=== PATIENT | male | born 1955 | race Caucasian/White ===

== ENCOUNTER 2019-04-16 05:59 | Inpatient (IN) | payer OTHER, BC ==
[2019-04-10 16:54] VITALS: BMI 38.5
[~2019-04-16 05:59] MED LIST: VANCOMYCIN 1,000 MG VIAL (RESTRICTED TO ID ONLY) IVPB ONE
[2019-04-16] MEDS ORDERED: oxyCODONE HCL 10 MG SUSTAINED ACTING TABLET PO ONE (06:27)
[2019-04-16] MEDS ORDERED: TRANEXAMIC ACID 1000 MG/10 ML VIAL IVPUSH ONE (06:27)
[2019-04-16] MEDS ORDERED: CELECOXIB 200 MG CAPSULE PO ONE (06:27)
[2019-04-16] MEDS ORDERED: BUPIVACAINE HCL/PF 0.5% (5MG/ML) 10 ML VIAL ONE (07:13)
[2019-04-16] MEDS ORDERED: MIDAZOLAM HCL 2 MG/2 ML SINGLE DOSE VIAL ONE (07:24)
[2019-04-16] MEDS ORDERED: BUPIVACAINE LIPOSOME/PF (EXPAREL) 266 MG/20 ML VIAL ONE (07:25)
[2019-04-16] MEDS ORDERED: SODIUM CHLORIDE 0.9% P/F 10 ML VIAL IJ ONE (07:25)
[2019-04-16] MEDS ORDERED: VANCOMYCIN 1,000 MG VIAL (RESTRICTED TO ID ONLY) ONE (07:39)
[2019-04-16] MEDS ORDERED: ceFAZolin SODIUM 1 GM VIAL ONE ×2 (07:39→08:26)
[2019-04-16] MEDS ORDERED: MAGNESIUM HYDROX 2400MG/30ML ORAL SUSPENSION 30 ML CUP PO PRN (07:57)
[2019-04-16] MEDS ORDERED: ONDANSETRON 4 MG/2 ML VIAL IVPUSH PRN (07:57)
[2019-04-16] MEDS ORDERED: MAG HYDROX/AL HYDROX/SIMETH 30 ML UNIT-DOSE CUP PO PRN (07:57)
--- NOTE | 2019-04-16 07:57 | HP ---
[facility]ellite [facility] - Chief Complaint Chief Complaint: right knee pain - Past Medical History Allergies/Adverse Reactions: Allergies Allergy/AdvReac Type Severity Reaction Status Date / Time Tetracyclines Allergy Unverified 04/02/13 17:58 - Current Medications Current Medications: Home Medications Medication Instructions Recorded Amlodipine Besylate [Norvasc -] 5 mg PO HS 04/10/19 Atorvastatin Ca [Lipitor] 40 mg PO HS 04/10/19 Tamsulosin HCl [Flomax] 0.4 mg PO DAILY 04/10/19 Glucosa Hare 2Kcl/Chondroitin Hare 2 each PO DAILY 04/16/19 [Glucosamine & Chondroitin Cap] Multivitamins [Tab-A-Vit -] 1 tab PO DAILY 04/16/19 Satellite Physical Exam - Physical Examination Vital Signs: Vital Signs Period Temp Pulse Resp BP Sys/Calderon Pulse Ox Last 24 Hr 98.2 F 88 18 125/80 General Appearance: Well Nourished, Well Developed, Alert & Oriented x3 ENT: Clear Lung: Normal air movement Heart: Regular rate & rhythm Extremities: Other (right knee- +Swelling, + ttp, decr rom, nvi, xrays show grade 4 tricompartmental djd) Neurological: Intact, Alert, Oriented Satellite Impression/Plan - Impression/Plan Impression: right knee djd Operative Procedure: right aureliano tkr Date to be Performed: 04/16/19
[2019-04-16] MEDS ORDERED: LACTATED RINGERS SOLUTION 1,000 ML IV SCH (08:00)
[2019-04-16] MEDS ORDERED: CEFAZOLIN 3 GM in DEXTROSE 5%-WATER - 50 ML IVPB ONE (08:00)
[2019-04-16] MEDS ORDERED: DEXMEDETOMIDINE HCL 200 MCG/2 ML IVPB ONE (08:07)
[2019-04-16] MEDS ORDERED: TRANEXAMIC ACID 1000 MG/10 ML VIAL ONE (08:26)
[2019-04-16] MEDS ORDERED: ONDANSETRON 4 MG/2 ML VIAL ONE (09:34)
[2019-04-16] MEDS ORDERED: DEXAMETHASONE SOD PHOSPHATE 4 MG/1 ML VIAL ONE (09:34)
[2019-04-16] MEDS ORDERED: MULTIVITAMINS (DAILY MVI) TABLET (FP) PO SCH (10:00)
[2019-04-16] MEDS ORDERED: VANCOMYCIN 1,000 MG VIAL (RESTRICTED TO ID ONLY) IVPB ONE (10:01)
[2019-04-16] MEDS ORDERED: EPHEDRINE SULFATE/0.9% NACL/PF 50 MG/10 ML SYRINGE NR ONE (10:22)
--- NOTE | 2019-04-16 10:32 | OP ---
Operative Note - Note: Operative Date: 04/16/19 (vu) Pre-Operative Diagnosis: right knee djd Operation: right aureliano tkr Post-Operative Diagnosis: Same as Pre-op Surgeon: Nicolas Ness Iron Bender: Micheal Thorne Anesthesiologist/COUGAR HUNTER: Kade Caceres Anesthesia: Spinal, Local Specimens Removed: bone fragments Estimated Blood Loss (mls): 100 Operative Report Dictated: Yes
[2019-04-16] MEDS ORDERED: oxyCODONE HCL 5 MG TABLET PO PRN (11:53)
[2019-04-16] MEDS: ACETAMINOPHEN 325 MG TABLET (FP) PO SCH ×3 (12:05→23:09)
--- NOTE | 2019-04-16 12:37 | SPEC ---
DATE OF OPERATION: 04/16/2019 PREOPERATIVE DIAGNOSIS: Degenerative joint disease, right knee. POSTOPERATIVE DIAGNOSIS: Degenerative joint disease, right knee. PROCEDURE: Right total knee replacement with robotic-assisted navigation (Makoplasty). SURGICAL ATTENDING: Nicolas Ness M.D. HR INTERNSHIP: [place] ANESTHESIA: Regional and spinal. CLOSURE: A Triathlon knee system, cemented, with a 5 femur, 5 tibia, 9 polyethylene, 35 patella, number 1 Vicryl fascia, 0 and 2-0 subcutaneous, 3-0 Monocryl subcuticular with skin glue, 4-0 undyed Vicryl for pin sites. ESTIMATED BLOOD LOSS: Approximately 100 mL. COMPLICATIONS: None. CONDITION: To recovery room in stable condition. DESCRIPTION OF OPERATIVE PROCEDURE: Patient was taken to the operating room on April 16, 2019. Regional and general anesthesia was administered by the anesthesiologist. IV Kefzol and TXA were administered by the anesthesiologist. Well-padded pneumatic tourniquet was placed on the proximal thigh. The right lower extremity was prepped and draped in the usual sterile fashion. The leg was exsanguinated with an Esmarch bandage, and tourniquet was inflated to 275 mmHg. A 12 to 15-cm longitudinal midline incision was incised while centered over the patella. The dissection was carried down to the level of the extensor mechanism with sufficient flaps made to adequately perform the procedure. A medial parapatellar arthrotomy was then performed. We made a cuff of tissue on the patella for later closure. The patella was inverted, the knee was flexed up. The fat pad was excised. The subperiosteal dissection was on the anteromedial proximal tibia around towards the direction of the MCL. The ACL and the PCL were transected and debrided. The meniscal remnants of the medial and lateral meniscus were debrided and removed. This allowed the knee to be able to "be brought forward." The checkpoints were malleted into the tibia and into the femur. Two threaded pins were drilled anteroposteriorly proximal to the knee through the previous incision, through the anterior cortex, then just engaging the posterior cortex. To these pins was assembled the femoral navigation array. One handbreadth below the tibial tubercle, 2 stab incisions were used to drill 2 threaded pins in parallel fashion into the tibia, again through the anterior cortex and just engaging the posterior cortex. To these pins was fastened the tibial arrays. The knee was then registered with the navigation device with center of rotation of the hip, medial and lateral malleoli, both checkpoints, and multiple points on both the femur and the tibia to ensure excellent registration. The navigation device was directed off the "top of the bubbles" on both the femur and the tibia. The navigation passed within less than 0.5 mm to plan. The knee was then thoroughly inspected to remove all osteophytes both medially, laterally, and on the femur and the tibia, and whatever osteophytes were available for dissection. The knee was then taken to extension and to flexion, and stressed in both varus and valgus to assess flexion gaps. The virtual position of the components on the navigation device were then manipulated to optimize the position and to ensure equal gaps in both flexion and extension, and both medially and laterally. The robot was then brought into the field and was registered. The cuts were then made both on the femur and on the tibia as to plan. All osteophytes posteriorly were then removed as well. The gaps were then measured again in flexion and extension to be equal in both flexion and extension and medial and laterally. The femoral notch was then made, as we were doing a posterior stabilizing component, with the appropriate sized box. Trial reduction of the femur achieved excellent [id number] fit. A tibial baseplate of appropriate polyethylene thickness was "floated in the knee." It was ensured to be in the excellent position by navigation devices and was pinned in place. The knee was taken through a range of motion, and found to have excellent stability throughout flexion and extension. The patella was calibrated for thickness and osteotomized down to the appropriate level. The appropriate lollipop was used to drill the lug holes in the patella and the trial button was applied. The knee was taken through a range of motion and found to have excellent tracking of the patella, and patella from full extension to full flexion. Trial components were removed, the keel was punched and drilled, and a sclerotic bone on the tibia was drilled to help with cement interdigitation. The knee was thoroughly irrigated with the pulse antibiotic management aide. The real components were then cemented in using monitored arrangement cement techniques with antibiotic cement, and pressurization and extension. After the cement was hardened, the knee was thoroughly inspected to remove any extra cement. The real polyethylene component was then clipped into place. Range of motion, stability, and tracking were as described earlier. The checkpoints and the pins were removed. The knee was thoroughly irrigated with antibiotic irrigation. Vancomycin powder was placed into the knee for antibiotic prophylaxis. The medial parapatellar arthrotomy was then closed using number 1 Vicryl interrupted suture. After closure of the deep layer, the knee was taken through a range of motion, and found to have excellent stability of the patella with no dislocation and no undue tension on the repair. The subcutaneous was pulse antibiotic irrigated, and was then closed with 2-0 Vicryl, 3-0 Monocryl subcuticular with the skin glue for the skin. The distal tibial pin site was irrigated thoroughly as well and then closed with 4-0 undyed Vicryl. A sterile Aquacel dressing was applied, followed by a Fang dressing. Tourniquet was deflated. Total tourniquet time was approximately 75 minutes. No complications. Patient was awakened from anesthesia and transferred to recovery room in stable condition. Postoperative x-rays revealed excellent position of the components. Brayan VARGAS/[id number]
[2019-04-16] MEDS ORDERED: CEFAZOLIN 3 GM in DEXTROSE 5%-WATER - 50 ML IVPB SCH (16:00)
--- NOTE | 2019-04-16 16:36 | CONSULT ---
Consultation: REQUESTING PROVIDER: Dr. Ness requested medical consult for Dr. Lewis. CONSULT REQUEST: We have been asked to medically evaluate this patient for Dr. Lewis. HISTORY OF PRESENT ILLNESS: 63 year-old male with a PMH significant for HTN, HLD, positional sleep apnea, BPH, and right knee degenerative joint disease s/p right aureliano total knee replacement pm 04/16/[address] Ness. REVIEW OF SYSTEMS: CONSTITUTIONAL: Absent: fever, chills, diaphoresis, generalized weakness, malaise, loss of appetite, weight change HEENT: Absent: rhinorrhea, nasal congestion, throat pain, throat swelling, difficulty swallowing, mouth swelling, ear pain, eye pain, visual changes CARDIOVASCULAR: Absent: chest pain, syncope, palpitations, irregular heart rate, lightheadedness , peripheral edema RESPIRATORY: Absent: cough, shortness of breath, dyspnea with exertion, orthopnea, wheezing, stridor, hemoptysis GASTROINTESTINAL: Absent: abdominal pain, abdominal distension, nausea, vomiting, diarrhea, constipation, melena, hematochezia GENITOURINARY: Absent: dysuria, frequency, urgency, hesitancy, hematuria, flank pain, genital pain MUSCULOSKELETAL: Absent: myalgia, arthralgia, joint swelling, back pain, neck pain SKIN: Absent: rash, itching, pallor HEMATOLOGIC/IMMUNOLOGIC: Absent: easy bleeding, easy bruising, lymphadenopathy, frequent infections ENDOCRINE: Absent: unexplained weight gain, unexplained weight loss, heat intolerance, cold intolerance NEUROLOGIC: Absent: headache, focal weakness or paresthesias, dizziness, unsteady gait, seizure, mental status changes, bladder or bowel incontinence PSYCHIATRIC: Absent: anxiety, depression, suicidal or homicidal ideation, hallucinations. PHYSICAL EXAMINATION Vital Signs - 24 hr 04/16/19 04/16/19 04/16/19 06:35 10:46 10:50 Temperature 98.2 F 97.6 F Pulse Rate 88 73 72 Respiratory 18 14 18 Rate Blood Pressure 125/80 105/56 L 100/61 O2 Sat by Pulse 98 99 Oximetry (%) 04/16/19 04/16/19 04/16/19 10:55 11:00 11:05 Temperature Pulse Rate 73 72 78 Respiratory 16 19 14 Rate Blood Pressure 95/63 105/61 102/62 O2 Sat by Pulse 98 97 98 Oximetry (%) 04/16/19 04/16/19 04/16/19 11:20 11:35 11:50 Temperature Pulse Rate 74 71 68 Respiratory 12 12 11 Rate Blood Pressure 105/69 103/56 L 100/59 L O2 Sat by Pulse 98 98 98 Oximetry (%) 04/16/19 04/16/19 04/16/19 12:05 12:20 12:35 Temperature 97.4 F L Pulse Rate 70 69 72 Respiratory 12 11 14 Rate Blood Pressure 104/62 105/63 105/61 O2 Sat by Pulse 97 98 98 Oximetry (%) 04/16/19 04/16/19 12:50 12:55 Temperature 97.4 F L 97.4 F L Pulse Rate 71 71 Respiratory 14 14 Rate Blood Pressure 111/64 111/64 O2 Sat by Pulse 97 97 Oximetry (%) GENERAL: Awake, alert, and fully oriented, in no acute distress. HEAD: Normal with no signs of trauma. EYES: Pupils equal, round and reactive to light, extraocular movements intact, sclera anicteric, conjunctiva clear. No lid lag. LUNGS: Breath sounds equal, clear to auscultation bilaterally. No wheezes, and no crackles. No accessory muscle use. HEART: Regular rate and rhythm, S1 and S2 ABDOMEN: Soft, nontender, not distended MUSCULOSKELETAL: RIGHT LEG in immobilizer, surgical dressings c/d/i, ice pack; flex/extend toes, intact sensory toes UPPER EXTREMITIES: 2+ pulses, warm, well-perfused. No cyanosis. No clubbing. Cap refill <2 seconds. No peripheral edema. NEUROLOGICAL: Cranial nerves II-XII intact. Normal speech. Active Medications Generic Name Dose Route Start Last Admin Trade Name Aman PRN Reason Stop Dose Admin Acetaminophen 650 mg 04/16/19 18:00 04/16/19 12:05 Tylenol - PO 04/19/19 17:59 650 mg Q6H AP Administration Al Hydroxide/Mg Hydroxide 30 ml 04/16/19 07:57 Mylanta Oral Suspension - PO Q4H PRN DYSPEPSIA Amlodipine Besylate 5 mg 04/16/19 22:00 Norvasc - PO HS AP Aspirin 325 mg 04/17/19 08:00 Asa - PO DAILY@0800 [facility] Atorvastatin Calcium 40 mg 04/16/19 22:00 Lipitor - PO HS [facility] Cefazolin Sodium 3 gm 04/16/19 16:00 Ancef - IVPB 04/17/19 00:01 Q8H [facility] Fentanyl 50 mcg 04/16/19 11:53 Sublimaze Injection - IVPUSH [id number] PRN PAIN-PACU ORDER X 4 DOSES ONLY Lactated Ringer's 1,000 mls @ 125 mls/hr 04/16/19 08:00 Lactated Ringers Solution IV 04/17/19 06:00 ASDIR [facility] Magnesium Hydroxide 30 ml 04/16/19 07:57 Milk Of Magnesia - PO PRN PRN CONSTIPATION Multivitamins/Minerals/Vitamin C 1 tab 04/16/19 10:00 Tab-A-Vit - PO DAILY [facility] Ondansetron HCl 4 mg 04/16/19 07:57 Zofran Injection IVPUSH Q6H PRN NAUSEA Oxycodone HCl 5 mg 04/16/19 11:53 Roxicodone - PO Q3H PRN PAIN LEVEL 1-5 Oxycodone HCl 10 mg 04/16/19 11:53 Roxicodone - PO Q3H PRN PAIN LEVEL 6-10 Pantoprazole Sodium 40 mg 04/16/19 10:00 Protonix - PO DAILY [facility] Senna/Docusate Sodium 2 tablet 04/16/19 10:00 Pericolace - PO BID [facility] Tamsulosin HCl 0.4 mg 04/16/19 17:00 Flomax - PO DAILY@1700 [facility] ASSESSMENT/PLAN: 63 year-old male with a PMH significant for HTN, HLD, positional sleep apnea, BPH, and right knee degenerative joint disease s/p right aureliano total knee replacement pm 04/16/[address] Ness. Right aureliano total knee replacement --POD #0 --perioperative antibiotics per surgery --pain management per surgery; pain presently well managed 11/28 --ASA 325mg daily --protonix --bowel regimen --incentive spirometry --Hemovac drain, monitor output Hypertension Hyperlipidemia Positional sleep apnea --does not use CPAP at home BPH --continue tamsulosin FEN Fluids: LR @ 125mL/hr Electrolytes: replete as indicated Nutrition: regular diet DVT prophylaxis: OOB, ambulation, SCDs, TEDs, ASA 325mg daily Physical therapy Dispo: We will continue to follow the patient. Thank you for this consultative opportunity.
[2019-04-16] MEDS: TAMSULOSIN HCL 0.4 MG CAP PO SCH (16:37)
[2019-04-16] MEDS: ceFAZolin SODIUM 1 GM VIAL IVPB SCH ×2 (16:37→23:07)
[2019-04-16] MEDS: SENNOSIDES/DOCUSATE COMBO (SENNA PLUS) TABLET (UD) PO SCH ×2 (16:41→21:32)
[2019-04-16] MEDS: PANTOPRAZOLE 40 MG TABLET (FP) PO SCH (16:41)
[2019-04-16] MEDS: MULTIVITAMINS (DAILY MVI) TABLET (FP) PO SCH (16:42)
[2019-04-16] MEDS: ATORVASTATIN CA 40 MG TABLET (FP) PO SCH (21:32)
[2019-04-16] MEDS: amLODIPine BESYLATE 5 MG TABLET (FP) PO SCH (22:03)
[2019-04-16] MEDS: oxyCODONE HCL 5 MG TABLET PO PRN (22:04)
[2019-04-17] MEDS: ACETAMINOPHEN 325 MG TABLET (FP) PO SCH ×3 (06:18→17:27)
--- NOTE | 2019-04-17 06:37 | PN ---
Progress Note, Physician History of Present Illness: knee pain no cp or sob - Current Medication List Current Medications: Active Medications Acetaminophen (Tylenol -) 650 mg PO Q6H [facility] Stop: 04/19/19 17:59 Last Admin: 04/17/19 06:18 Dose: 650 mg Al Hydroxide/Mg Hydroxide (Mylanta Oral Suspension -) 30 ml PO Q4H PRN PRN Reason: DYSPEPSIA Amlodipine Besylate (Norvasc -) 5 mg PO HS [facility] Last Admin: 04/16/19 22:03 Dose: Not Given Aspirin (Asa -) 325 mg PO DAILY@0800 [facility] Atorvastatin Calcium (Lipitor -) 40 mg PO [facility] Last Admin: 04/16/19 21:32 Dose: 40 mg Fentanyl (Sublimaze Injection -) 50 mcg IVPUSH [id number] PRN PRN Reason: PAIN-PACU ORDER X 4 DOSES ONLY Magnesium Hydroxide (Milk Of Magnesia -) 30 ml PO PRN PRN PRN Reason: CONSTIPATION Multivitamins/Minerals/Vitamin C (Tab-A-Vit -) 1 tab PO DAILY [facility] Last Admin: 04/16/19 16:42 Dose: Not Given Ondansetron HCl (Zofran Injection) 4 mg IVPUSH Q6H PRN PRN Reason: NAUSEA Oxycodone HCl (Roxicodone -) 5 mg PO Q3H PRN PRN Reason: PAIN LEVEL 1-5 Last Admin: 04/16/19 19:16 Dose: 5 mg Oxycodone HCl (Roxicodone -) 10 mg PO Q3H PRN PRN Reason: PAIN LEVEL 6-10 Last Admin: 04/16/19 22:04 Dose: 10 mg Pantoprazole Sodium (Protonix -) 40 mg PO DAILY [facility] Last Admin: 04/16/19 16:41 Dose: Not Given Senna/Docusate Sodium (Pericolace -) 2 tablet PO BID [facility] Last Admin: 04/16/19 21:32 Dose: 2 tablet Tamsulosin HCl (Flomax -) 0.4 mg PO DAILY@1700 [facility] Last Admin: 04/16/19 16:37 Dose: 0.4 mg - Objective Vital Signs: Vital Signs Temperature 97.9 F 04/17/19 05:00 Pulse Rate 57 L 04/17/19 05:00 Respiratory Rate 18 04/17/19 05:00 Blood Pressure 101/50 L 04/17/19 05:00 O2 Sat by Pulse Oximetry (%) 98 04/17/19 05:00 Cardiovascular: Yes: Regular Rate and Rhythm Respiratory: Yes: Regular, CTA Bilaterally Gastrointestinal: Yes: Normal Bowel Sounds, Soft. No: Tenderness Problem List - Problems (1) S/P knee surgery Assessment/Plan: PT DVT prophylaxis per ortho (2) HTN (hypertension) Assessment/Plan: controlled' on norvasc monitor Code(s): I10 - ESSENTIAL (PRIMARY) HYPERTENSION (3) HLD (hyperlipidemia) Code(s): E78.5 - HYPERLIPIDEMIA, UNSPECIFIED (4) BPH (benign prostatic hyperplasia) Assessment/Plan: on flomax Code(s): N40.0 - BENIGN PROSTATIC HYPERPLASIA WITHOUT LOWER URINRY TRACT SYMP
[2019-04-17 07:00] LABS: HEMATOCRIT 39.6 % (35.4-49); HEMOGLOBIN 13.1 GM/dl (11.7-16.9); MCH 32.1 pg (25.7-33.7); MEAN CELL VOLUME 97.2 fl (80-96); MEAN PLT VOLUME 8.6 fl (7.5-11.1); PLATELET COUNT 188 K/MM3 (134-434); RBC 4.08 M/mm3 (4.00-5.60); RDW 12.7 % (11.9-15.9); WHITE BLOOD COUNT 12.4 K/mm3 (4.0-10.8)
[2019-04-17] MEDS: ASPIRIN 325 MG TABLET PO SCH (08:53)
[2019-04-17] MEDS: oxyCODONE HCL 5 MG TABLET PO PRN ×3 (08:54→16:31)
[2019-04-17] MEDS: SENNOSIDES/DOCUSATE COMBO (SENNA PLUS) TABLET (UD) PO SCH ×2 (09:46→21:39)
[2019-04-17] MEDS: MULTIVITAMINS (DAILY MVI) TABLET (FP) PO SCH (09:46)
[2019-04-17] MEDS: PANTOPRAZOLE 40 MG TABLET (FP) PO SCH (09:46)
--- NOTE | 2019-04-17 12:14 | PN ---
Progress Note (short form) - Note Progress Note: Ortho Pt seen and examined s/p right aureliano tkr pod #1 Selected Entries 04/17/19 08:56 Temperature 97.8 F Pulse Rate 97 H Respiratory 18 Rate Blood Pressure 137/57 L Laboratory Tests 04/17/19 06:53 WBC 12.4 H Hgb 13.1 Hct 39.6 D Plt Count 188 dressing c/d/i, calf soft, nt rom 0-40, nvi a/p PT dvt ppx pain control d/c home tomorrow if stable
--- NOTE | 2019-04-17 12:52 | PN ---
Progress Note, Physician Chief Complaint: s/p right TKA LELIA under spinal anesthesia History of Present Illness: post op day one with adductor canal/tibial block for post op pain control - Current Medication List Current Medications: Active Medications Acetaminophen (Tylenol -) 650 mg PO Q6H [facility] Stop: 04/19/19 17:59 Last Admin: 04/17/19 12:37 Dose: 650 mg Al Hydroxide/Mg Hydroxide (Mylanta Oral Suspension -) 30 ml PO Q4H PRN PRN Reason: DYSPEPSIA Amlodipine Besylate (Norvasc -) 5 mg PO [facility] Last Admin: 04/16/19 22:03 Dose: Not Given Aspirin (Asa -) 325 mg PO DAILY@0800 [facility] Last Admin: 04/17/19 08:53 Dose: 325 mg Atorvastatin Calcium (Lipitor -) 40 mg PO [facility] Last Admin: 04/16/19 21:32 Dose: 40 mg Fentanyl (Sublimaze Injection -) 50 mcg IVPUSH [id number] PRN PRN Reason: PAIN-PACU ORDER X 4 DOSES ONLY Magnesium Hydroxide (Milk Of Magnesia -) 30 ml PO PRN PRN PRN Reason: CONSTIPATION Multivitamins/Minerals/Vitamin C (Tab-A-Vit -) 1 tab PO DAILY [facility] Last Admin: 04/17/19 09:46 Dose: 1 tab Ondansetron HCl (Zofran Injection) 4 mg IVPUSH Q6H PRN PRN Reason: NAUSEA Oxycodone HCl (Roxicodone -) 5 mg PO Q3H PRN PRN Reason: PAIN LEVEL 1-5 Last Admin: 04/16/19 19:16 Dose: 5 mg Oxycodone HCl (Roxicodone -) 10 mg PO Q3H PRN PRN Reason: PAIN LEVEL 6-10 Last Admin: 04/17/19 12:37 Dose: 10 mg Pantoprazole Sodium (Protonix -) 40 mg PO DAILY [facility] Last Admin: 04/17/19 09:46 Dose: 40 mg Senna/Docusate Sodium (Pericolace -) 2 tablet PO BID [facility] Last Admin: 04/17/19 09:46 Dose: 2 tablet Tamsulosin HCl (Flomax -) 0.4 mg PO DAILY@1700 [facility] Last Admin: 04/16/19 16:37 Dose: 0.4 mg - Objective Vital Signs: Vital Signs Temperature 97.8 F 08/28/19 08:56 Pulse Rate 97 H 04/17/19 08:56 Respiratory Rate 18 04/17/19 08:56 Blood Pressure 137/57 L 04/17/19 08:56 O2 Sat by Pulse Oximetry (%) 98 04/17/19 08:31 Constitutional: Yes: Well Nourished Cardiovascular: Yes: WNL Respiratory: Yes: WNL Gastrointestinal: Yes: WNL Labs: CBC, BMP 04/17/19 06:53 Assessment/Plan No adverse effect of anesthetic, pain exacerbated by physical therapy, added oxycontin 10mg BID for pain control. Otherwise dept of anesthesia will sign off care at this time
[2019-04-17] MEDS: oxyCODONE HCL 10 MG SUSTAINED ACTING TABLET PO SCH ×2 (14:53→21:40)
[2019-04-17] MEDS: TAMSULOSIN HCL 0.4 MG CAP PO SCH (16:31)
[2019-04-17] MEDS: amLODIPine BESYLATE 5 MG TABLET (FP) PO SCH (21:40)
[2019-04-17] MEDS: ATORVASTATIN CA 40 MG TABLET (FP) PO SCH (21:40)
[2019-04-18] MEDS: ACETAMINOPHEN 325 MG TABLET (FP) PO SCH ×2 (00:05→06:39)
[2019-04-18 06:30] VITALS: BP 132/62; PULSE 91; TEMP 98.8
[2019-04-18] MEDS: oxyCODONE HCL 5 MG TABLET PO PRN ×2 (06:38→10:11)
[2019-04-18 07:51] LABS: HEMATOCRIT 35.9 % (35.4-49); HEMOGLOBIN 12.4 GM/dl (11.7-16.9); MCH 33.4 pg (25.7-33.7); MCHC 34.4 g/dl (32.0-35.9); MEAN PLT VOLUME 9.5 fl (7.5-11.1); PLATELET COUNT 162 K/MM3 (134-434); RDW 13.2 % (11.9-15.9); WHITE BLOOD COUNT 10.8 K/mm3 (4.0-10.8)
--- NOTE | 2019-04-18 08:00 | DS ---
Physical Examination Vital Signs: Vital Signs Temperature 98.8 F 04/18/19 06:00 Pulse Rate 91 H 04/18/19 06:00 Respiratory Rate 18 04/18/19 06:00 Blood Pressure 132/62 04/18/19 06:00 O2 Sat by Pulse Oximetry (%) 93 L 04/18/19 06:00 Discharge Summary Reason For Visit: RIGHT TOTAL KNEE REPLACEMENT AURELIANO Current Active Problems BPH (benign prostatic hyperplasia) (Acute) HLD (hyperlipidemia) (Acute) HTN (hypertension) (Acute) S/P knee surgery (Acute) Procedures: Principal: right tkr Hospital Course: admitted for elective right aureliano tkr, post-op per protocol, stable for d/c Condition: Good - Instructions Diet, Activity, Other Instructions: Post-op Instructions-Total Knee Replacement Call the office for a follow-up appointment in 1 week - [phone] Aspirin 325mg daily for 6 weeks. Pain medication was sent into your pharmacy. Apply Graduated Compression Stockings (TEDs) to both lower extremities- remove daily for hygiene ONLY Apply Sequential Compression Device (SCDs) to both Lower extremities remove for PT and hygiene ONLY Apply cold packs to affected area for 15 minutes every 2 hours. Physical Therapist will come to your home for the first 5 days. You will be set up with outpatient PT at your first post-operative visit. Patient may ambulate as tolerated-encourage self care (at least every 2-3 hours while awake) with walker or cane Maintain Aquacel (waterproof) dressing to operative wound (will be removed by surgeon at first office visit) Shower with Aquacel dressing in place-if Aquacel integrity compromised, remove and apply dry sterile dressing and notify Orthopedist. DO NOT SHOWER unless Orthopedists approves without Aquacel dressing CONTACT THE OFFICE FOR ANY CHANGE IN YOUR CONDITION (for example-fever greater than 102 degrees, excessive bleeding from operative site, purulent drainage, severe swelling or pain) GO TO THE EMERGENCY ROOM IF THERE IS A MEDICAL EMERGENCY Knee Precautions: * Keep a rolled towel under affected heel while in bed or chair (to keep knee in extension) * Keep affected leg elevated except during mealtimes * DO NOT PLACE PILLOW UNDER AFFECTED KNEE * If you have any questions, please do not hesitate to call the office - . Referrals: Nicolas Ness MD [Staff Physician] - Disposition: [facility]/HOME HEALTH CARE - Home Medications Comprehensive Discharge Medication List: Ambulatory Orders Amlodipine Besylate [Norvasc -] 5 mg PO HS 04/10/19 Atorvastatin Ca [Lipitor] 40 mg PO HS 04/10/19 Tamsulosin HCl [Flomax] 0.4 mg PO DAILY 04/10/19 Aspirin [ASA -] 325 mg PO DAILY@0800 tablet 04/16/19 Glucosa Hare 2Kcl/Chondroitin Hare [Glucosamine & Chondroitin Cap] 2 each PO DAILY 04/16/19 Multivitamins [Multivit ([facility] Form[facility])] 1 tab PO DAILY 04/16/19 Oxycodone HCl/Acetaminophen [Percocet 5-325 mg Tablet -] 1 - 2 tab PO Q6H #50 tab MDD 8 04/16/19
--- NOTE | 2019-04-18 08:00 | PN ---
Progress Note (short form) - Note Progress Note: Ortho Pt seen and examined s/p right aureliano tkr pod #2 Selected Entries 04/18/19 06:00 Temperature 98.8 F Pulse Rate 91 H Respiratory 18 Rate Laboratory Tests 04/18/19 07:12 WBC Pending Hgb Pending Hct Pending Plt Count Pending dressing c/d/i, calf soft, nt rom 0-40, nvi a/p PT dvt ppx pain control d/c home today f/u in 1 week
[2019-04-18] MEDS: ASPIRIN 325 MG TABLET PO SCH (08:51)
[2019-04-18] MEDS: SENNOSIDES/DOCUSATE COMBO (SENNA PLUS) TABLET (UD) PO SCH (09:50)
[2019-04-18] MEDS: oxyCODONE HCL 10 MG SUSTAINED ACTING TABLET PO SCH (09:51)
[2019-04-18] MEDS: MULTIVITAMINS (DAILY MVI) TABLET (FP) PO SCH (09:51)
[2019-04-18] MEDS: PANTOPRAZOLE 40 MG TABLET (FP) PO SCH (09:51)
--- NOTE | 2019-04-18 11:16 | PN ---
Progress Note, Physician Chief Complaint: patient seen and examined s/p right Ken cleared for discharge - Current Medication List Current Medications: Active Medications Acetaminophen (Tylenol -) 650 mg PO Q6H [facility] Stop: 04/19/19 17:59 Last Admin: 04/18/19 06:39 Dose: 650 mg Al Hydroxide/Mg Hydroxide (Mylanta Oral Suspension -) 30 ml PO Q4H PRN PRN Reason: DYSPEPSIA Amlodipine Besylate (Norvasc -) 5 mg PO [facility] Last Admin: 04/17/19 21:40 Dose: 5 mg Aspirin (Asa -) 325 mg PO DAILY@0800 [facility] Last Admin: 04/18/19 08:51 Dose: 325 mg Atorvastatin Calcium (Lipitor -) 40 mg PO [facility] Last Admin: 04/17/19 21:40 Dose: 40 mg Fentanyl (Sublimaze Injection -) 50 mcg IVPUSH [id number] PRN PRN Reason: PAIN-PACU ORDER X 4 DOSES ONLY Magnesium Hydroxide (Milk Of Magnesia -) 30 ml PO PRN PRN PRN Reason: CONSTIPATION Multivitamins/Minerals/Vitamin C (Tab-A-Vit -) 1 tab PO DAILY [facility] Last Admin: 04/18/19 09:51 Dose: 1 tab Ondansetron HCl (Zofran Injection) 4 mg IVPUSH Q6H PRN PRN Reason: NAUSEA Oxycodone HCl (Roxicodone -) 5 mg PO Q3H PRN PRN Reason: PAIN LEVEL 1-5 Last Admin: 04/16/19 19:16 Dose: 5 mg Oxycodone HCl (Roxicodone -) 10 mg PO Q3H PRN PRN Reason: PAIN LEVEL 6-10 Last Admin: 04/18/19 10:11 Dose: 10 mg Oxycodone HCl (Oxycontin -) 10 mg PO BID [facility] Last Admin: 04/18/19 09:51 Dose: 10 mg Pantoprazole Sodium (Protonix -) 40 mg PO DAILY [facility] Last Admin: 04/18/19 09:51 Dose: 40 mg Senna/Docusate Sodium (Pericolace -) 2 tablet PO BID [facility] Last Admin: 04/18/19 09:50 Dose: 2 tablet Tamsulosin HCl (Flomax -) 0.4 mg PO DAILY@1700 [facility] Last Admin: 08/28/19 16:31 Dose: 0.4 mg - Objective Vital Signs: Vital Signs Temperature 98.8 F 04/18/19 06:00 Pulse Rate 91 H 04/18/19 06:00 Respiratory Rate 18 04/18/19 06:00 Blood Pressure 132/62 04/18/19 06:00 O2 Sat by Pulse Oximetry (%) 93 L 04/18/19 06:00 Constitutional: Yes: Calm Neck: Yes: Trachea Midline Cardiovascular: Yes: Regular Rate and Rhythm, S1, S2 Respiratory: Yes: CTA Bilaterally Gastrointestinal: Yes: Normal Bowel Sounds, Soft Extremities: Yes: Other (right knee aquacel dressing) Edema: Yes Neurological: Yes: Alert, Oriented Labs: CBC, BMP 04/18/19 07:12 Problem List - Problems (1) S/P knee surgery Assessment/Plan: FU with dr saunders PT pain control stool softners (2) BPH (benign prostatic hyperplasia) Assessment/Plan: flomax Code(s): N40.0 - BENIGN PROSTATIC HYPERPLASIA WITHOUT LOWER URINRY TRACT SYMP (3) HLD (hyperlipidemia) Assessment/Plan: atorvastatin Code(s): E78.5 - HYPERLIPIDEMIA, UNSPECIFIED (4) HTN (hypertension) Assessment/Plan: norvasc BP controlled Code(s): I10 - ESSENTIAL (PRIMARY) HYPERTENSION
--- NOTE | 2019-04-19 12:52 | PATH ---
Surgical Pathology Report Patient Name: KOBE TALBERT Med. Rec. #: [id number] /Age/Gender: 1955 (Age: 63) / M Account: [id number] Location: [facility] MED-SURG Taken: 04/16/2019 Received: 04/16/2019 Reported: 04/19/2019 Physicians: Nicolas Ness M.D. Specimen(s) Received BONES RIGHT KNEE Clinical History Right knee, osteoarthritis Final Diagnosis RIGHT KNEE BONES, RESECTION: DEGENERATIVE JOINT DISEASE, RIGHT KNEE. Electronically Signed Young Guerrero M.D. Gross Description Received in formalin, labeled "right knee bones" is an 11.5 x 10 x 2 cm aggregate of multiple portions of bone and soft tissue. The tibial plateau measures 7.2 x 5 x 1.5 cm. Articular surfaces show areas of eburnation a nunez-brown granularity. The underlying trabecular bone is yellow and hard. [employer] sections are submitted in one cassette, following decalcification. AE/04/18/2019 ebram/04/18/2019
== END 2019-04-18 11:23 | disposition home health service (06) | DRG 470 ==
LOC: FM/S 05:59
PROVIDERS: ADMIT Orthopaedic Surgery; ATTEND Orthopaedic Surgery
PROC: 8E0Y0CZ Robotic Assisted Procedure of Lower Extremity, Open Approach (ICD-10-PCS; 2019-04-16)
PROC: 0SRC0J9 Replacement of Right Knee Joint with Synthetic Substitute, Cemented, Open Approach (ICD-10-PCS; principal; 2019-04-16 08:34)
DX: M17.11 Unilateral primary osteoarthritis, right knee (principal); I10 Essential (primary) hypertension; E78.5 Hyperlipidemia, unspecified; N40.0 Benign prostatic hyperplasia without lower urinary tract symptoms
CPT/HCPCS: 36415; 73560-TC-RT-FY; 85027; 88304-TC; 88311-TC; 94760; 97110-GP; 97116-GP; 97163-GP